=== PATIENT | female | born 1985 | race Caucasian/White ===

== ENCOUNTER 2018-08-22 15:54 | Outpatient (CLI) | payer SELFPAY, OTHER ==
[2018-08-22 17:00] LABS: D-DIMER 0.33 MG/L FEU (0-0.50)
== END 2018-08-22 23:59 | disposition home or self-care (01) ==
LOC: LAB 15:54
PROVIDERS: ATTEND Family Medicine
DX: R07.9 Chest pain, unspecified (principal); R00.1 Bradycardia, unspecified; R53.81 Other malaise; R53.83 Other fatigue
CPT/HCPCS: 36415; 85379